=== PATIENT | female | born 1960 | race Caucasian/White ===

== ENCOUNTER 2024-12-15 00:09 | Emergency (ER) | payer OTHER ==
[~2024-12-15] VITALS: Ht 165.1 cm; Wt 84.0 kg
[2024-12-15 00:23] VITALS: O2SAT 100
[2024-12-15 01:09] VITALS: BP 166/94; PULSE 110; RESP 18; TEMP 98.3
[2024-12-15] MEDS: MORPHINE SULFATE 4 MG/ML INJ (FOR IV/IM USE) IM ONE (01:09)
[2024-12-15] MEDS: ACETAMINOPHEN 325MG TABLET PO ONE (01:09)
[2024-12-15] MEDS: LIDOCAINE 5% PATCH TOP SCH (01:09)
[2024-12-15] MEDS ORDERED: ACET-2708 MT (03:53)
[2024-12-15] MEDS ORDERED: BACL-141 MT (03:53)
== END 2024-12-15 05:05 | disposition home or self-care (01) ==
LOC: ER 00:17
DX: S13.4XXA Sprain of ligaments of cervical spine, initial encounter (principal); R07.89 Other chest pain; W22.8XXA Striking against or struck by other objects, initial encounter; Y93.89 Activity, other specified; Y92.410 Unspecified street and highway as the place of occurrence of the external cause; Y99.8 Other external cause status
CPT/HCPCS: 99285; 72125; 71101; 73560; 71250; 93005; 96372; J2270